=== PATIENT | male | born 1985 | race Two or more races ===

== ENCOUNTER 2019-09-05 06:23 | Day surgery (SDC) | payer OTHER ==
[2019-09-05] MEDS ORDERED: LIDOCAINE-MPF 2% 5 ML VIAL MC ONE (06:24)
[2019-09-05] MEDS ORDERED: CEFAZOLIN 1 G VIAL MC ONE (06:24)
[2019-09-05] MEDS ORDERED: DEXAMETHASONE SOD PHOSPHATE 4 MG INJ IV ONE (06:24)
[2019-09-05] MEDS ORDERED: KETOROLAC TROMETHAMINE 30 MG INJ IM ONE (06:24)
[2019-09-05] MEDS ORDERED: SEVOFLURANE 250 ML BOTTLE IH ONE (06:24)
[2019-09-05] MEDS ORDERED: ONDANSETRON 4 MG/2 ML VIAL IV ONE (06:24)
[2019-09-05] MEDS ORDERED: PROPOFOL 200 MG/20 ML BOTTLE IV ONE (06:24)
[2019-09-05] MEDS ORDERED: HYDROMORPHONE 2 MG/1 ML DISP.SYRIN ONE (09:24)
[2019-09-05] MEDS ORDERED: BUPIVACAINE/EPI PF 0.25% 30 ML VIAL ONE (09:36)
[2019-09-05] MEDS ORDERED: MORPHINE SULFATE PF 10 MG/10 ML AMPUL IV ONE (09:36)
[2019-09-05] MEDS ORDERED: FENTANYL CITRATE 100 MCG/2 ML AMPUL ONE (11:03)
[2019-09-05] MEDS ORDERED: ONDANSETRON 4 MG/2 ML VIAL ONE (11:04)
== END 2019-09-05 12:52 | disposition home or self-care (01) ==
LOC: DS 06:23
PROVIDERS: ATTEND Orthopaedic Surgery
PROC: 0SBD4ZZ Excision of Left Knee Joint, Percutaneous Endoscopic Approach (ICD-10-PCS; principal; 2019-09-05)
DX: S83.242A Other tear of medial meniscus, current injury, left knee, initial encounter (principal); W31.82XA Contact with other commercial machinery, initial encounter; Y93.89 Activity, other specified; Y92.69 Other specified industrial and construction area as the place of occurrence of the external cause; Y99.0 Civilian activity done for income or pay; E66.01 Morbid (severe) obesity due to excess calories; Z68.37 Body mass index [BMI] 37.0-37.9, adult; Z82.49 Family history of ischemic heart disease and other diseases of the circulatory system; M65.9 Synovitis and tenosynovitis, unspecified
CPT/HCPCS: A4663; J0690; J1100; J1170; J1885; J2274; J2405; J3010; J3490; J7120